=== PATIENT | female | born 1940 | race Caucasian/White ===

== ENCOUNTER 2018-10-23 11:33 | Emergency (ER) | payer OTHER ==
[~2018-10-23] VITALS: Ht 165.1 cm; Wt 70.0 kg
[2018-10-23 11:41] VITALS: BP 173/75; PULSE 74; RESP 20; Ht 165.1 cm; Wt 70.0 kg
[2018-10-23] MEDS ORDERED: ACETAMINOPHEN 325 MG TAB PO ONE (15:30)
[2018-10-23] MEDS ORDERED: ACET325T33 PO (16:56)
--- NOTE | 2018-10-23 16:57 | ERD ---
ER Documentation Chief Complaint Chief Complaint Complains of right leg pain x 2 days ROS All systems reviewed and are negative except as per history of present illness. Medications Home Meds Active Scripts Acetaminophen* (Tylenol*) 325 Mg Tablet, 650 MG PO Q6H PRN for PAIN AND OR EL EVATED TEMP, #30 TAB Prov:FRANCISCA IBARRA DO 10/23/18 Allergies Allergies: Coded Allergies: No Known Allergy (Unverified , 10/23/18) PMhx/Soc History of Surgery: No Anesthesia Reaction: No Hx Neurological Disorder: No Hx Respiratory Disorders: No Hx Cardiac Disorders: Yes (HTN) Hx Psychiatric Problems: No Hx Miscellaneous Medical Probl: Yes (DM) Hx Alcohol Use: No Hx Substance Use: No Hx Tobacco Use: No Smoking Status: Never smoker Physical Exam Vitals Vital Signs Date Temp Pulse Resp B/P (MAP) Pulse Ox O2 O2 Flow FiO2 Time Delivery Rate 10/23/18 36.6 15:31 10/23/18 97.9 74 20 173/75 97 11:41 (107) Physical Exam Const: No acute distress Head: Atraumatic Eyes: Normal Conjunctiva ENT: Normal External Ears, Nose and Mouth. Neck: Full range of motion. No meningismus. Resp: Clear to auscultation bilaterally Cardio: Regular rate and rhythm, no murmurs Abd: Soft, non tender, non distended. Normal bowel sounds Skin: No petechiae or rashes Back: No midline or flank tenderness Ext: No cyanosis, or edema Neur: Awake and alert Psych: Normal Mood and Affect Results 24 hrs Current Medications Medications Dose Sig/Rosie Start Time Status Last (Trade) Ordered Route PRN Stop Time Admin Dose Reason Admin 650 mg ONCE ONCE 10/23/18 DC 10/23/18 Acetaminophen PO 15:30 10/23/18 15:31 (Tylenol 15:31 Tab) Departure Diagnosis: Primary Impression: Pain of right leg Condition: Fair Patient Instructions: Possible Causes of Low Back or Leg Pain Referrals: [facility] YOU HAVE RECEIVED A MEDICAL SCREENING EXAM AND THE RESULTS INDICATE THAT YOU DO NOT HAVE A CONDITION THAT REQUIRES URGENT TREATMENT IN THE EMERGENCY DEPARTMENT. FURTHER EVALUATION AND TREATMENT OF YOUR CONDITION CAN WAIT UNTIL YOU ARE SEEN IN YOUR DOCTORS OFFICE WITHIN THE NEXT 1-2 DAYS. IT IS YOUR RESPONSIBILITY TO MAKE AN APPOINTMENT FOR FOLOW-UP CARE. IF YOU HAVE A PRIMARY DOCTOR --you should call your primary doctor and schedule an appointment IF YOU DO NOT HAVE A PRIMARY DOCTOR YOU CAN CALL OUR PHYSICIAN REFERRAL HOTLINE AT IF YOU CAN NOT AFFORD TO SEE A PHYSICIAN YOU CAN CHOSE FROM THE FOLLOWING [facility] [address] [facility] [address] [facility] [facility] [address] [facility] [address] [facility]. [facility] [address] [facility] [facility] [address] Additional Instructions: Call your primary care doctor TOMORROW for an appointment during the next 1-2 days.See the doctor sooner or return here if your condition worsens before your appointment time. elevate right leg for swelling pain medication prn ice for swelling FRANCISCA IBARRA DO Oct 23, 2018 16:57
== END 2018-10-23 17:10 | disposition home or self-care (01) ==
LOC: FTE 11:33
DX: M79.604 Pain in right leg (principal); E11.9 Type 2 diabetes mellitus without complications; I10 Essential (primary) hypertension
CPT/HCPCS: 73700; Z7502; Z7610

== ENCOUNTER 2018-10-27 12:31 | Inpatient (IN) | payer OTHER ==
[~2018-10-27] VITALS: Ht 312.4 cm; Wt 62.0 kg
[~2018-10-27 12:31] MED LIST: ACET325T33 PO
--- NOTE | 2018-10-27 15:57 | ERD ---
ER Documentation Chief Complaint Chief Complaint BIB RESCUE FOR WEAKNESS WITH N/V HPI The patient is a 78-year-old female, presenting with acute weakness, nausea, vomiting that began a day ago, but worse around 9 AM today. He denies fever, complains of dizziness and headache, denies facial pain, neck pain, chest pain, dyspnea, abdominal pain, vomiting, dizzy, diarrhea. She does not smoke nor drink Past medical history: Hypertension, diabetes mellitus, chronic kidney disease Past surgical history: Bilateral cataract surgery ROS All systems reviewed and are negative except as per history of present illness. Medications Home Meds Reported Medications Rosuvastatin Calcium* (Crestor*) 20 Mg Tablet, 20 MG PO QHS, #30 TAB 10/27/18 Sitagliptin* (Januvia*) 100 Mg Tablet, 100 MG PO DAILY, #30 TAB 10/27/18 Omeprazole* (Omeprazole*) 40 Mg Capsule.dr, 40 MG PO DAILY, #30 CAP 10/27/18 Losartan Potassium* (Losartan Potassium*) 50 Mg Tablet, 50 MG PO DAILY, TAB 10/27/18 Amlodipine Besylate* (Amlodipine Besylate*) 10 Mg Tablet, 10 MG PO DAILY, #30 TAB 10/27/18 Glipizide* (Glipizide*) 10 Mg Tablet, 10 MG PO AC BREAKFAST, TAB 10/27/18 Discontinued Scripts Acetaminophen* (Tylenol*) 325 Mg Tablet, 650 MG PO Q6H PRN for PAIN AND OR ELEVATED TEMP, #30 TAB Prov:FRANCISCA IBARRA DO 10/23/18 Allergies Allergies: Coded Allergies: No Known Allergy (Unverified , 10/27/18) PMhx/Soc History of Surgery: No Anesthesia Reaction: No Hx Neurological Disorder: No Hx Respiratory Disorders: No Hx Cardiac Disorders: Yes (HTN) Hx Psychiatric Problems: No Hx Miscellaneous Medical Probl: Yes (DM) Hx Alcohol Use: No Hx Substance Use: No Hx Tobacco Use: No Physical Exam Vitals Vital Signs Date Temp Pulse Resp B/P (MAP) Pulse Ox O2 O2 Flow FiO2 Time Delivery Rate 10/27/18 65 17 164/54 100 Room Air 17:30 (90) 10/27/18 66 14 145/55 100 Room Air 16:00 (85) 10/27/18 97.6 65 18 156/74 98 12:46 (101) Physical Exam Const: No acute distress. Head: Atraumatic. Eyes: Normal Conjunctiva. ENT: Normal External Ears, Nose and Mouth. Neck: Full range of motion. No meningismus. Resp: Clear to auscultation bilaterally. Cardio: Regular rate and rhythm. Abd: Soft, non distended, normal bowel sounds, non tender. Skin: No petechiae or rashes. Back: No midline or flank tenderness. Ext: No cyanosis, or edema. Neur: Awake and alert. No focal deficit Psych: Normal Mood and Affect. Result Diagram: 10/27/18 1641 10/27/18 1641 Results 24 hrs Laboratory Tests Test 10/27/18 16:41 10/27/18 17:31 10/27/18 18:22 White Blood Count 7.7 10^3/ul Red Blood Count 3.30 10^6/ul Hemoglobin 9.2 g/dl Hematocrit 28.7 % Mean Corpuscular Volume 87.0 fl Mean Corpuscular Hemoglobin 27.9 pg Mean Corpuscular 32.1 g/dl Hemoglobin Concent Red Cell Distribution Width 13.1 % Platelet Count 269 10^3/UL Mean Platelet Volume 9.2 fl Immature Granulocytes % 0.400 % Neutrophils % 85.1 % Lymphocytes % 11.9 % Monocytes % 2.2 % Eosinophils % 0.1 % Basophils % 0.3 % Nucleated Red Blood Cells % 0.0 /100WBC Immature Granulocytes # 0.030 10^3/ul Neutrophils # 6.6 10^3/ul Lymphocytes # 0.9 10^3/ul Monocytes # 0.2 10^3/ul Eosinophils # 0.0 10^3/ul Basophils # 0.0 10^3/ul Nucleated Red Blood Cells # 0.0 10^3/ul Prothrombin Time 12.4 Sec Prothrombin Time Ratio 1.0 INR International Normalized Ratio 0.91 Activated Partial Thromboplast 25.6 Sec Time Sodium Level 145 mmol/L Potassium Level 4.2 mmol/L Chloride Level 110 mmol/L Carbon Dioxide Level 21 mmol/L Anion Gap 14 Blood Urea Nitrogen 46 mg/dl Creatinine 1.98 mg/dl Est Glomerular Filtrat Rate mL/min mL/min Glucose Level 297 mg/dl Calcium Level 11.6 mg/dl Bedside Glucose 283 mg/dL Bedside Urine pH (LAB) 5.0 Bedside Urine Protein (LAB) 3+ Bedside Urine Glucose (UA) 0.25% Bedside Urine Ketones (LAB) Negative Bedside Urine Blood Trace-lysed Bedside Urine Nitrite (LAB) Negative Bedside Urine Leukocyte Esterase Negative (L Current Medications Medications Dose Sig/Rosie Start Time Status Last (Trade) Ordered Route PRN Stop Time Admin Dose Reason Admin Ondansetron 4 mg ONCE STAT 10/27/18 DC 10/27/18 HCl (Zofran IV 16:08 17:01 Inj) 10/27/18 16:09 Sodium 500 ml @ Q1H ONCE 10/27/18 DC Chloride 500 mls/hr IV 17:30 10/27/18 18:29 Aspirin 162 mg ONCE ONCE 10/27/18 DC (Aspirin) PO 19:00 10/27/18 19:01 Procedures/MDM EKG: Read by emergency physician Rate/Rhythm: Normal Sinus Rhythm 65 beats/min QRS, ST, T-waves: No ST elevation, no T inversion Impression: Normal EKG [place] [id number] Radiology Main Line: [phone] DIAGNOSTIC IMAGING REPORT Patient: ERVIN RAMON : 1940 Age: 78 Sex: F MR #: [id number] DOS: 10/27/18 1608 Ordering MD: FRANCISCA BRENNER MD Location: E/R Room/Bed: PROCEDURE: CT brain without contrast CLINICAL INDICATION: Headache, weakness TECHNIQUE: CT of the brain without contrast performed on a multidetector CT scanner, with multiplanar reformats. One or more of the following dose reduction techniques were used: Automated exposure control, adjustment in mA and / or kV according to patient size, use of iterative reconstructive technique. CTDIvol = 39 mGy; DLP = 634 mGy-cm. DICOM images are available. COMPARISON: None available FINDINGS: There is an infarct in the inferior left cerebellar hemisphere which appears acute or subacute. No acute intracranial hemorrhage is identified. No extra- axial fluid collection is seen. No significant mass effect or midline shift is identified. The ventricles and sulci are mild - moderately enlarged compatible with volume loss. There are moderate to severe areas of hypodensity in the periventricular - deep white matter which are nonspecific but suggestive of chronic small vessel ischemic changes. Atherosclerotic calcifications of the intracranial internal carotid arteries are noted. Calvarium and skull base are intact. Mastoid air cells and imaged paranasal sinuses grossly clear. IMPRESSION: 1. Acute or subacute left cerebellar infarct. Further evaluation with MRI is advised. 2. Mild to moderate volume loss, with moderate to severe chronic small vessel ischemic changes. Results called to Dr. Brenner at 05:01 p.m., 10/27/2018. RPTAT: VV .Ruben Cuevas MD, MD Date Time Electronically viewed and signed by .Ruben Cuevas MD, on 10/27/2018 17:02 .O/ CC: FRANCISCA BRENNER MD [phone] Brain MRI is pending MEDICAL MAKING DECISION: The patient is a 78-year-old female, presenting with acute versus subacute cerebellar stroke, acute hypercalcemia. She was treated with Zofran 4 mg IV for nausea, 500 mm of normal saline for clinical dehydration and aspirin 160 mg p.o. q. cerebellar stroke The differential diagnoses considered include but are not limited to schrader barachnoid hemorrhage, electrolyte imbalance, occult trauma, CVA, meningitis, encephalitis, hypertension, tension, migraine, cluster, narcotic withdrawal, cervical spine disease. Departure Diagnosis: Primary Impression: Cerebellar stroke, acute Additional Impressions: Hypercalcemia Anemia Condition: Stable Comments I discussed the findings with the patient. I discussed the patient with the hospitalist Dr Schultz at 6:35 pm . who was made aware of the lab, the treatment, the patient condition,pending MRI. The patient is admitted to Tel Disclaimer: Inadvertent spelling and grammatical errors are likely due to EHR/dictation software use and do not reflect on the overall quality of patient care. Also, please note that the electronic time recorded on this note does not necessarily reflect the actual time of the patient encounter. FRANCISCA BRENNER MD Oct 27, 2018 15:57
[2018-10-27] MEDS ORDERED: ONDANSETRON 4 MG INJ IV STA (16:08)
[2018-10-27] MEDS ORDERED: GLIP10TA14 PO (16:55)
[2018-10-27] MEDS ORDERED: AMLO-147 PO (16:55)
[2018-10-27] MEDS ORDERED: LOSA50TA14 PO (16:55)
[2018-10-27] MEDS ORDERED: OMEP40CA6 PO (16:56)
[2018-10-27] MEDS ORDERED: ROSU20TA PO (16:56)
[2018-10-27] MEDS ORDERED: SITA100T11 PO (16:56)
[2018-10-27] MEDS ORDERED: SOD CHLORIDE 0.9% 500 ML IV ONE (17:30)
[2018-10-27] MEDS ORDERED: ASPIRIN 81 MG TAB PO ONE (19:00)
[2018-10-27] MEDS ORDERED: ZOLPIDEM 5 MG TAB PO PRN (20:00)
[2018-10-27] MEDS: ASPIRIN 81 MG TAB PO SCH (20:00)
[2018-10-27] MEDS ORDERED: ONDANSETRON 4 MG INJ IV PRN (20:00)
[2018-10-27] MEDS ORDERED: NACL 0.9% 3 ML SYG IV SCH (20:00)
[2018-10-27] MEDS: SOD CHLORIDE 0.9% 1,000 ML IV SCH (20:30)
[2018-10-27 21:44] VITALS: PULSE 68
[2018-10-27 21:45] VITALS: BP 177/73; PULSE 67; RESP 18
[2018-10-27] MEDS: FAMOTIDINE 20 MG TAB PO SCH (23:33)
[2018-10-28] VITALS (14 sets, daily range): BP systolic 165–189; BP diastolic 69–82; PULSE 66–210; RESP 18–22; Ht 312.4 cm; Wt 62.0 kg
[2018-10-28] MEDS: SOD CHLORIDE 0.9% 1,000 ML IV SCH ×2 (06:30→16:17)
[2018-10-28] MEDS: ASPIRIN 81 MG TAB PO SCH (08:07)
[2018-10-28] MEDS: FAMOTIDINE 20 MG TAB PO SCH (08:07)
[2018-10-28] MEDS ORDERED: ASPI-831 PO (10:39)
--- NOTE | 2018-10-28 10:41 | PDOCDIS ---
Discharge Instructions CONDITION [id number] Patient Condition: [id number] Good HOME CARE INSTRUCTIONS: [id number] Diet Instructions: [id number] Activity Restrictions: [id number] Slowly Increase Activity FOLLOW UP/APPOINTMENTS Follow-up Plan pcp 1 week endocrinology 1 week RIYA MACIAS MD Oct 28, 2018 10:41
[2018-10-28] MEDS: LOSARTAN 50 MG TAB PO SCH (11:05)
[2018-10-28] MEDS: AMLODIPINE 10 MG TAB PO SCH (11:05)
[2018-10-28] MEDS ORDERED: MECLIZINE 12.5 MG TAB PO SCH (13:00)
--- NOTE | 2018-10-28 13:24 | CONS ---
Assessment/Plan Assessment/Plan Hospital Course 78 yo F with multiple comorbidities who initially presented for evaluation of dizziness and other sx. MRI brain confirmed acute BL cerebellar infarcts, with additional acute punctate foci supratentorially.. She was noted to be more confused than her baseline... for which neurology is consulted. Her confusion is likely in part attributable to a hospital-induced delirium. Her BUN/Cr raise suspicion for a superimposed acute metabolic encephalopathy. As an aside, she likely has some degree of an underlying dementia... CUS is unremarkable. Echo is reportedly unrevealing... P: Add UA, UDS, TSH, B12, CXR to exclude reversible causes of encephalopathy Cont ASA as scheduled for secondary stroke prevention; resume statin nightly for the same... Would benefit from a 30-day holter monitor of its equivalent as an outpatient, to further evaluate for paroxysmal afib... Reorient as necessary Limit sedating medications where possible PT/OT/ST as necessary Other management and supportive care per primary Will follow clinically Consultation Date/Type/Reason Admit Date/Time Oct 27, 2018 at 19:05 Type of Consult Neurology Reason for Consultation ams Requesting Provider: RIYA MACIAS MD Date/Time of Note DATE: 10/28/18 TIME: 13:07 Hx of Present Illness 78 yo F with hx of HTN, DM, CKD who presented to the ED for evaluation of weakness, nausea and vomiting. History was obtained from pt, family and chart review as pt is a poor historian. The family at bedside state that the pt is somewhat confused at baseline (normally oriented to self, place, situation) and that she appears to be more confused today. The pt herself denies confusion, but endorses headache, dizziness, nausea and weakness. She also denies lethargy, speech or vision difficulties, numbness or tingling, or gait instability. It is elsewhere noted: HPI The patient is a 78-year-old female, presenting with acute weakness, nausea, vomiting that began a day ago, but worse around 9 AM today. He denies fever, complains of dizziness and headache, denies facial pain, neck pain, chest pain, dyspnea, abdominal pain, vomiting, dizzy, diarrhea. She does not smoke nor d rink Past medical history: Hypertension, diabetes mellitus, chronic kidney disease Past surgical history: Bilateral cataract surgery negative unless noted otherwise in HPI Exam/Review of Systems Exam Vitals Vital Signs Date Temp Pulse Resp B/P (MAP) Pulse Ox O2 O2 Flow FiO2 Time Delivery Rate 10/28/18 76 12:00 10/28/18 98.4 20 171/72 95 11:36 (105) 10/28/18 Room Air 03:51 Exam PE: Gen Appearance: No Apparent Distress HEENT: Normocephalic Cardiovascular: Regular rate Lungs: Clear bilaterally Abdomen: Soft Extremities: Dry NE: The patient was awake and alert, though disoriented. Oriented to self, parts of situation and president. Language was normal. Fund of knowledge was poor. Pupils were equal and reactive to light. There was no afferent pupillary defect. Visual devlin were normal. Funduscopic examination was limited. Extra-ocular movements were full. Ptosis was absent. There was no nystagmus. Facial sensation was normal. Face was symmetric with normal strength. Hearing was intact. Palate movements were normal. Neck strength was normal. There was normal tongue bulk and speed of movement. Tone was normal. Muscle bulk was normal. I did not see fasciculations. Arms and legs were strong. Vibration sensation was normal. Temperature and pinprick sensation was normal. Rapid alternating movements were normal. There was dysmetria noted bilaterally; no ataxia was noted. There was no intention tremor. Gait was deferred due to bedrest. Arm and leg reflexes were 2+ and symmetric. Cheatham's sign was absent. Plantar responses were flexor. Results Result Diagram: 10/27/18 1641 10/27/18 1641 Results 24hrs Laboratory Tests Test 10/27/18 16:41 10/27/18 17:31 10/27/18 18:22 10/28/18 05:25 White Blood Count 7.7 Red Blood Count 3.30 L Hemoglobin 9.2 L Hematocrit 28.7 L Mean Corpuscular 87.0 Volume Mean Corpuscular 27.9 L Hemoglobin Mean Corpuscular 32.1 Hemoglobin Concent Red Cell 13.1 Distribution Width Platelet Count 269 Mean Platelet 9.2 Volume Immature 0.400 Granulocytes % Neutrophils % 85.1 H Lymphocytes % 11.9 L Monocytes % 2.2 Eosinophils % 0.1 Basophils % 0.3 Nucleated Red Blood 0.0 Cells % Immature 0.030 Granulocytes # Neutrophils # 6.6 Lymphocytes # 0.9 Monocytes # 0.2 L Eosinophils # 0.0 Basophils # 0.0 Nucleated Red Blood 0.0 Cells # Prothrombin Time 12.4 Prothrombin Time 1.0 Ratio INR International 0.91 Normalized Ratio Activated 25.6 Partial Thromboplas t Time Sodium Level 145 H Potassium Level 4.2 Chloride Level 110 Carbon Dioxide 21 Level Anion Gap 14 H Blood Urea Nitrogen 46 H Creatinine 1.98 H Est Glomerular Filtrat Rate mL/min Glucose Level 297 H Calcium Level 11.6 H 11.2 H Bedside Glucose 283 H Bedside Urine pH 5.0 (LAB) Bedside Urine 3+ H Protein (LAB) Bedside Urine 0.25% H Glucose (UA) Bedside Urine Negative Ketones (LAB) Bedside Urine Blood Trace-lysed H Bedside Urine Negative Nitrite (LAB) Bedside Urine Negative Leukocyte Esterase (L Hemoglobin A1c 8.1 H Test 10/28/18 11:02 Bedside Glucose 188 Imaging Imaging MRI brain: IMPRESSION: Acute left cerebellar infarct, within the posterior inferior cerebellar artery distribution. No acute hemorrhage. Additional smaller infarct in the right cerebellar hemisphere, somewhat linear shaped. There are additional punctate foci on the DWI sequence in the supratentorial brain, likely small infarcts as well. Findings suggest an embolic source. Loss of the normal flow void within the left intracranial vertebral artery, which may be a congenital finding. However, given the left PICA infarct, findings are worrisome for occlusion or dissection. Consider CTA to further evaluate. Background old infarcts in the right frontal deep white matter anteriorly and chronic microvascular ischemic disease. CUS reviewed: IMPRESSION: 1. Mild atherosclerotic plaques without evidence for hemodynamically significant stenosis or occlusion. 2. Normal antegrade flow in the vertebral arteries bilaterally. Medications Medication Current Medications IV Flush (NS 3 ml) 3 ml PER PROTOCOL IV ; Start 10/27/18 at 20:00 Ondansetron HCl (Zofran Inj) 4 mg Q6H PRN IV NAUSEA/VOMITING; Start 10/27/18 at 20:00 Aspirin (Aspirin) 81 mg DAILY PO Last administered on 10/28/18at 08:07; Admin Dose 81 MG; Start 10/27/18 at 20:00 Zolpidem Tartrate (Ambien) 5 mg QHS PRN PO .INSOMNIA; Start 10/27/18 at 20:00 Famotidine (Pepcid) 20 mg DAILY PO Last administered on 10/28/18at 08:07; Admin Dose 20 MG; Start 10/27/18 at 21:00 Sodium Chloride 1,000 ml @ 100 mls/hr Q10H IV Last administered on 10/28/18at 0 6:30; Admin Dose 100 MLS/HR; Start 10/27/18 at 20:30 Influenza Virus Vaccine Quadrival (Fluzone) 0.5 ml ONCE ONCE IM* ; Start 10/30/18 at 10:00; Stop 10/30/18 at 10:01 Amlodipine Besylate (Norvasc) 10 mg DAILY PO Last administered on 10/28/18at 11:05; Admin Dose 10 MG; Start 10/28/18 at 11:00 Glipizide (Glucotrol) 10 mg AC BREAKFAST PO ; Start 10/29/18 at 07:00 Losartan Potassium (Cozaar) 50 mg DAILY PO Last administered on 10/28/18at 11:05; Admin Dose 50 MG; Start 10/28/18 at 11:00 Past Medical History reviewed Home Meds Active Scripts Aspirin (Aspirin) 81 Mg Chew, 81 MG PO DAILY for 30 Days, TAB 6 Refills Prov:RIYA MACIAS MD 10/28/18 Reported Medications Rosuvastatin Calcium* (Crestor*) 20 Mg Tablet, 20 MG PO QHS, #30 TAB 10/27/18 Sitagliptin* (Januvia*) 100 Mg Tablet, 100 MG PO DAILY, #30 TAB 10/27/18 Omeprazole* (Omeprazole*) 40 Mg Capsule.dr, 40 MG PO DAILY, #30 CAP 10/27/18 Losartan Potassium* (Losartan Potassium*) 50 Mg Tablet, 50 MG PO DAILY, TAB 10/27/18 Amlodipine Besylate* (Amlodipine Besylate*) 10 Mg Tablet, 10 MG PO DAILY, #30 TAB 10/27/18 Glipizide* (Glipizide*) 10 Mg Tablet, 10 MG PO AC BREAKFAST, TAB 10/27/18 Discontinued Scripts Acetaminophen* (Tylenol*) 325 Mg Tablet, 650 MG PO Q6H PRN for PAIN AND OR ELEVATED TEMP, #30 TAB Prov:FRANCISCA IBARRA DO 10/23/18 Medications Current Medications IV Flush (NS 3 ml) 3 ml PER PROTOCOL IV ; Start 10/27/18 at 20:00 Ondansetron HCl (Zofran Inj) 4 mg Q6H PRN IV NAUSEA/VOMITING; Start 10/27/18 at 20:00 Aspirin (Aspirin) 81 mg DAILY PO Last administered on 10/28/18at 08:07; Admin Dose 81 MG; Start 10/27/18 at 20:00 Zolpidem Tartrate (Ambien) 5 mg QHS PRN PO .INSOMNIA; Start 10/27/18 at 20:00 Famotidine (Pepcid) 20 mg DAILY PO Last administered on 10/28/18at 08:07; Admin Dose 20 MG; Start 10/27/18 at 21:00 Sodium Chloride 1,000 ml @ 100 mls/hr Q10H IV Last administered on 10/28/18at 06:30; Admin Dose 100 MLS/HR; Start 10/27/18 at 20:30 Influenza Virus Vaccine Quadrival (Fluzone) 0.5 ml ONCE ONCE IM* ; Start 10/30/18 at 10:00; Stop 10/30/18 at 10:01 Amlodipine Besylate (Norvasc) 10 mg DAILY PO Last administered on 10/28/18at 11:05; Admin Dose 10 MG; Start 10/28/18 at 11:00 Glipizide (Glucotrol) 10 mg AC BREAKFAST PO ; Start 10/29/18 at 07:00 Losartan Potassium (Cozaar) 50 mg DAILY PO Last administered on 10/28/18at 11:05; Admin Dose 50 MG; Start 10/28/18 at 11:00 Allergies: Coded Allergies: No Known Allergy (Unverified , 10/27/18) Past Surgical History reviewed Social History reviewed Smoking Status: Never smoker EVELYNE FROST NP Oct 28, 2018 13:17 BERYL BRADLEY Oct 28, 2018 18:23
[2018-10-28] MEDS ORDERED: HALOPERIDOL 5 MG INJ IV ONE (19:30)
[2018-10-28] MEDS: METOPROLOL 50 MG TAB PO SCH (21:37)
--- NOTE | 2018-10-28 21:52 | RADRPT ---
Echocardiogram Report Patient Name: ERVIN RAMONPatient ID: [id number] : 1940 (78y 3m)Study Date: 10/28/2018 7:21:22 AM Gender: FAccession #: [id number] Tech: Tatianna Jimenez [facility] Location: [id number] Ref.Physician: RIYA MACIAS Height(Cm): BSA: Weight(Kg): Quality: AdequateAccount #: Procedures: Echocardiographic Report: Transthoracic echocardiogram with complete 2D, M-Mode, and doppler examination. Indications: Cerebrovascular Accident, r/o LV thrombus. Measurements: 2D/M Mode Doppler Measurement Value Normal Range Measurement Value Normal Range LVIDd 2D 4.4 [ 3.8 - 5.2 ] cm BENNIE VTI 1.9 [ 2.0 - 4.0 ] cm2 LVIDs 2D 2.5 [ 2.2 - 3.5 ] cm AV Mean [place] 1.6 [ 70.0 - 90.0 ] cm/sec LVPWd 2D 1.1 [ 0.6 - 0.9 ] cm AV Mean PG 12.0 [ 2.0 - 4.0 ] mmHg IVSd 2D 1.0 [ 0.6 - 0.9 ] cm AV VTI 50.4 cm AoR Diam 2D 2.0 [ 2.3 - 3.1 ] cm AI Peak PG 59.0 mmHg EDV 2D 87.7 [ 46.0 - 106.0 ] ml AI Peak [place] 3.8 cm/sec ESV 2D 22.1 [ 14.0 - 42.0 ] ml AI PHT 357.0 msec EF 2D 74.8 [ 54.0 - 74.0 ] percent LVOT Mean [place] 0.9 [ 60.0 - 80.0 ] cm/sec LA Dimen 2D 3.9 [ 2.7 - 3.8 ] cm LVOT Mean PG 4.0 [ 1.0 - 3.0 ] mmHg LVOT Diam 1.9 [ 2.1 - 2.5 ] cm LVOT Peak [place] 1.3 [ 70.0 - 110.0 ] cm/sec LVOT Peak PG 7.0 [ 2.0 - 6.0 ] mmHg LVOT VTI 33.9 [ 20.0 - 30.0 ] cm MV E Peak [place] 0.9 [ 60.0 - 130.0 ] cm/sec MV A Peak [place] 1.4 [ 100.0 - 120.0 ] cm/sec MV E/A 0.6 [ 0.8 - 1.5 ] ratio MV Peak [place] 1.6 [ 60.0 - 130.0 ] cm/sec MV Peak PG 10.0 [ 1.0 - 10.0 ] mmHg MV Mean [place] 0.8 cm/sec MV Mean PG 3.0 mmHg MV Decel Time 352 [ 104 - 258 ] msec Lat E` [place] 0.1 [ 10.0 - 15.0 ] cm/sec Lateral E/E` 13.2 [ 1.0 - 2.0 ] ratio MV E/A 0.6 [ 0.8 - 1.5 ] ratio MV VTI 44.6 cm MVA VTI 2.2 cm TR Peak [place] 2.8 [ 100.0 - 280.0 ] cm/sec TR Peak PG 31.0 mmHg RVSP 34.0 [ 10.0 - 36.0 ] mmHg RA Pressure 3.0 mmHg Findings: Left Ventricle: Normal left ventricular systolic function. Normal left ventricular cavity size. Mild concentric left ventricular hypertrophy. Ejection fraction is visually estimated at 60 %. Tissue Doppler/Mitral Doppler indices are consistent with impaired relaxation (Stage I diastolic dysfunction). Right Ventricle: Normal right ventricular size. Normal right ventricular systolic function. Left Atrium: The left atrium is normal in size. Right Atrium: The right atrium is normal in size. Mitral Valve: Mild mitral leaflet calcification. Moderate mitral annular calcification. Trace mitral regurgitation. Aortic Valve: Aortic sclerosis without significant stenosis. Trace to mild aortic valve regurgitation. Tricuspid Valve: Normal appearance and function of the tricuspid valve with trace physiologic regurgitation. Pulmonic Valve: Normal pulmonic valve appearance. Pericardium: Normal pericardium with no significant pericardial effusion. Aorta: Normal aortic root. IVC: Normal size and normal respiratory collapse consistent with normal right atrial pressure. Conclusions: Normal left ventricular systolic function. Normal left ventricular cavity size. Mild concentric left ventricular hypertrophy. Ejection fraction is visually estimated at 60 %. Tissue Doppler/Mitral Doppler indices are consistent with impaired relaxation (Stage I diastolic dysfunction). Normal right ventricular size. Normal right ventricular systolic function. The left atrium is normal in size. The right atrium is normal in size. No significant valvular stenosis or regurgitation seen. Normal pericardium with no significant pericardial effusion. Electronically Signed By: Cruz Barnett 2018-10-28 21:51:32 PDT
[2018-10-29] VITALS (11 sets, daily range): BP systolic 145–189; BP diastolic 65–87; PULSE 62–86; RESP 18–22
[2018-10-29] MEDS: SOD CHLORIDE 0.9% 1,000 ML IV SCH ×2 (02:30→12:30)
[2018-10-29] MEDS ORDERED: glipiZIDE 10 MG TAB PO SCH (07:00)
[2018-10-29] MEDS: ASPIRIN 81 MG TAB PO SCH (08:25)
[2018-10-29] MEDS: LOSARTAN 50 MG TAB PO SCH (08:26)
[2018-10-29] MEDS: METOPROLOL 50 MG TAB PO SCH (08:26)
[2018-10-29] MEDS: AMLODIPINE 10 MG TAB PO SCH (08:26)
[2018-10-29] MEDS: FAMOTIDINE 20 MG TAB PO SCH (08:26)
--- NOTE | 2018-10-29 15:04 | CONS ---
Assessment/Plan Assessment/Plan Hospital Course 78 yo F with multiple comorbidities who presents with weakness and other sx. She was noted to be more confused than her baseline... for which neurology is consulted. Perhaps her confusion is attributed to a hospital-induced delirium. As an aside, she likely has an underlying dementia... A superimposed acute encephalopathy is not entirely excluded. MRI brain is notable for acute BL cerebellar infarcts. CUS is unremarkable. P: Add UA, UDS, TSH, B12, CXR to exclude reversible causes of encephalopathy Cont ASA as scheduled; recommend the addition of Lipitor for secondary stroke prevention Cont other medical management per primary Reorient as necessary Limit sedating medications where possible PT/OT/ST as tolerated Will follow clinically Consultation Date/Type/Reason Admit Date/Time Oct 27, 2018 at 19:05 Type of Consult Neurology Reason for Consultation ams Requesting Provider: RIYA MACIAS MD Date/Time of Note DATE: 10/29/18 TIME: 15:04 24 HR Interval Summary Free Text/Dictation Continues acute care Exam Vital Signs Vitals Vital Signs Date Temp Pulse Resp B/P (MAP) Pulse Ox O2 O2 Flow FiO2 Time Delivery Rate 10/29/18 62 12:01 10/29/18 98.2 18 145/65 95 Room Air 11:46 (91) EVELYNE FROST NP Oct 29, 2018 15:04 BERYL BRADLEY Oct 29, 2018 17:11
--- NOTE | 2018-10-29 19:01 | DS ---
DATE OF ADMISSION: 10/27/2018 DATE OF DISCHARGE: 10/29/2018 DISCHARGE DIAGNOSES: 1. A 78-year-old female with acute bilateral cerebellar embolic stroke. 2. Altered mental status due to delirium, improved. 3. Hypertension. 4. Hypercalcemia. HOSPITAL COURSE: A 78-year-old female who presented to Emergency Room with complaint of generalized weakness associated with dizziness, nausea, and vomiting. The patient was diagnosed with acute embol ic cerebellar stroke. MRI of brain showed acute left cerebral infarct within the posterior inferior cerebellar artery distribution. An additional smaller infarct was noted in the right cerebellar richard sphere. There was no evidence of hemorrhage. The patient was started on aspirin. She was seen in c onsultation by neurology group. The patient has altered mental status attributed to delirium. She h as mild underlying dementia as well. At this point, she is in a stable condition for discharge. [facility] physical therapy was requested. Incidentally, patient was found to have hypercalcemia. On admission, calcium level was 11.6 and it improved to 10.9 on the day of discharge. B12 level and TSH levels were normal. The patient will be referred to endocrinology as outpatient for further evaluat ion of hypercalcemia. PLAN: Discharge to home. MEDICATIONS ON DISCHARGE: 1. Aspirin 81 mg p.o. daily. 2. Amlodipine 10 mg p.o. daily. 3. Glipizide 10 mg p.o. daily. 4. Losartan 50 mg p.o. daily. 5. Omeprazole 40 mg p.o. daily. 6. Crestor 20 mg p.o. at bedtime. 7. Januvia 100 mg p.o. daily. Dictated By: RIYA CARDENAS/PRASANTH Conf#: [id number] DID#: [id number] CC: BERYL BRADLEY;*EndCC*
[2018-10-29] MEDS ORDERED: ATORVASTATIN 20 MG TAB PO SCH (21:00)
[2018-10-30] MEDS ORDERED: INFLUENZA VIRUS VACCINE 0.5 ML (DISPENSING) IM* ONE (10:00)
== END 2018-10-29 15:18 | disposition home health service (06) | DRG 64 ==
LOC: E/R 12:31 → 6WM 19:05
PROVIDERS: ADMIT Internal Medicine; ATTEND Internal Medicine
DX: I63.443 Cerebral infarction due to embolism of bilateral cerebellar arteries (principal); G93.41 Metabolic encephalopathy; F05 Delirium due to known physiological condition; E83.52 Hypercalcemia; E11.9 Type 2 diabetes mellitus without complications; F03.90 Unspecified dementia, unspecified severity, without behavioral disturbance, psychotic disturbance, mood disturbance, and anxiety; I10 Essential (primary) hypertension; R53.1 Weakness; R42 Dizziness and giddiness; R11.2 Nausea with vomiting, unspecified; Z79.84 Long term (current) use of oral hypoglycemic drugs
CPT/HCPCS: 36415; 70450; 70551; 71045; 80048; 80061; 80307; 81001; 81003; 82310; 82607; 82962; 83036; 83970; 84443; 85025; 85610; 85730; 86592; 93005; 93306; 93880; 96374; 97116; 97162; 97165; 97530; 97535; J1630; J2405; J7030; J7040